=== PATIENT | female | born 2000 | race Hispanic/Latino ===

== ENCOUNTER 2021-05-19 16:07 | Inpatient (IN) | payer OTHER ==
[~2021-05-19 16:07] MED LIST: Bupivacaine 0.25% HCL 30 ML VIAL ONE
[2021-05-19 16:51] VITALS: BMI 29.8
[2021-05-19] MEDS ORDERED: hydrALAZINE 20 MG/ML VIAL SLOW IVP PRN ×2 (17:12→18:05)
[2021-05-19 17:41] LABS: Fetal Membranes Rupture RUPTURE DETECTED (No Rupture)
[2021-05-19] MEDS ORDERED: Ondansetron PF 4 MG/2 ML Vial IVP PRN ×2 (18:05→23:23)
[2021-05-19] MEDS ORDERED: Diphenoxylate HCl/Atropine Tablet PO PRN (18:05)
[2021-05-19] MEDS ORDERED: Promethazine HCl 25 MG/ML VIAL IM PRN ×2 (18:05→23:23)
[2021-05-19] MEDS ORDERED: Ibuprofen 800 MG TAB PO PRN (18:05)
[2021-05-19] MEDS ORDERED: Carboprost 250 MCG/ML AMP IM PRN (18:05)
[2021-05-19] MEDS ORDERED: Lidocaine 1% (PF) 30 ML VIAL SC PRN (18:05)
[2021-05-19] MEDS ORDERED: Misoprostol 200 MCG TAB PR PRN (18:05)
[2021-05-19] MEDS ORDERED: Penicillin G Potassium 5 MILL.UNITS in Sodium Chloride 0.9% 100 ML IVPB SCH (18:15)
[2021-05-19 18:46] LABS: Hemoglobin 10.4 g/dL (12.0-15.5); Mean Corpuscular HGB CONC 30.9 g/dL (32.0-36.0); Mean Corpuscular Hemoglobin 25.4 pg (27.0-33.0); Mean Corpuscular Volume 82.4 fl (81.6-98.3); Mean Platelet Volume 9.9 fl (7.4-10.4); Platelet Count 244 10x3/uL (150-450); RBC Distribution Width 22.2 % (11.5-14.5); Red Blood Cell (RBC) Count 4.09 10x6/uL (3.90-5.03); White Blood Cell (WBC) Count 8.4 10x3/uL (3.5-10.5)
[2021-05-19] MEDS ORDERED: Penicillin G Potassium 5 MILL.UNITS VIAL ONE (19:06)
[2021-05-19 19:13] LABS: Hep B Surf Ag Non-Reactive S/CO (NonReactive); Syphilis Antibody Nonreactive (Nonreactive); Syphilis Antibody Index 0.04 S/CO (<1.00 Non-Reactive)
[2021-05-19] MEDS: Lactated Ringer's 1,000 ML IV SCH (19:16)
[2021-05-19] MEDS ORDERED: Fentanyl 2 mcg/Bup 0.1% Cadd 100 ML ONE (19:58)
[2021-05-19 20:10] LABS: ALT (SGPT) 12 U/L (8-55); AST (SGOT) 16 U/L (5-34); Albumin 3.6 g/dL (3.5-5.0); Alkaline Phosphatase 199 U/L (40-110); Anion Gap 14 mmol/L (10-20); BUN (Urea Nitrogen) 7 mg/dL (7.0-18.7); Bilirubin, Total 0.3 mg/dL (0.2-1.2); Calc. Creatinine Clearance 179 mL/min (70-130); Calcium 8.9 mg/dL (7.8-10.44); Carbon Dioxide 17 mmol/L (22-29); Chloride 111 mmol/L (98-107); Glucose 94 mg/dL (70-105); Protein, Total 6.6 g/dL (6.0-8.3); Sodium 138 mmol/L (136-145)
[2021-05-19 21:32] LABS: Creatinine, Urine 33.35 mg/dL (47-110); Protein, Urine Random Quant Less than 10 mg/dL (1-14)
[2021-05-19] MEDS: Penicillin G 2.5 MILL.units 2.5 MILL.UNITS in Premix Bag 1 BAG IVPB SCH (23:16)
[2021-05-19] MEDS ORDERED: Hydrocerin (Eucerin) Cream 120 gm Jar TOP PRN (23:23)
[2021-05-19] MEDS ORDERED: Lactated Ringer's 500 ML IV PRN (23:23)
[2021-05-19] MEDS ORDERED: Naloxone HCl 0.4 mg/ml Vial IVP PRN ×2 (23:23)
[2021-05-19] MEDS ORDERED: ePHEDrine Sulfate 50 MG/10 ML VIAL SLOW IVP PRN (23:23)
[2021-05-19] MEDS ORDERED: diphenhydrAMINE 50 MG/ML VIAL IVP PRN (23:23)
[2021-05-19] MEDS: NS w/ Oxytocin 30 units 500 ML IV SCH (23:24)
[2021-05-19] MEDS ORDERED: Communication Order-Pharmacy FS SCH (23:30)
[2021-05-19] MEDS ORDERED: Fentanyl 2 mcg/Bupivacaine 0.1% Cassette 100 ML EPIDURAL SCH (23:30)
[2021-05-20 01:03] LABS: SARS-CoV-2 NAA Rapid Test Not Detected (NotDetected)
[2021-05-20] MEDS: Penicillin G 2.5 MILL.units 2.5 MILL.UNITS in Premix Bag 1 BAG IVPB SCH (03:03)
[2021-05-20] MEDS: NS w/ Oxytocin 30 units 500 ML IV SCH (07:50)
[2021-05-20] MEDS ORDERED: Preparation H Ointment 28 GM TUBE PR PRN (08:54)
[2021-05-20] MEDS ORDERED: Ondansetron PF 4 MG/2 ML Vial IVP PRN (08:54)
[2021-05-20] MEDS ORDERED: Bisacodyl 10 MG SUPP PR PRN (08:54)
[2021-05-20] MEDS ORDERED: hydrALAZINE 20 MG/ML VIAL SLOW IVP PRN (08:54)
[2021-05-20] MEDS ORDERED: Benzocaine-Menthol 82.5 ML CAN TOP PRN (08:54)
[2021-05-20] MEDS ORDERED: Acetaminophen 325 MG TAB PO PRN (08:54)
[2021-05-20] MEDS ORDERED: diphenhydrAMINE 25 MG CAP PO PRN (08:54)
[2021-05-20] MEDS ORDERED: Boostrix 0.5 ML (Tdap) VIAL IM ONE (08:54)
[2021-05-20] MEDS ORDERED: Lanolin Ointment 7 GM TUBE TOP PRN (08:54)
[2021-05-20] MEDS ORDERED: Milk Of Magnesia 30 ML UDCUP PO PRN (08:54)
[2021-05-20] MEDS: Prenatal Vitamin 1 TAB PO SCH (10:41)
[2021-05-20] MEDS: Docusate Calcium (SURFAK) 240 MG CAP PO SCH ×2 (10:41→21:51)
[2021-05-20] MEDS: Ibuprofen 800 MG TAB PO SCH ×2 (13:01→21:52)
[2021-05-20] MEDS: Ferrous Sulfate 325 MG TAB PO SCH (15:15)
[2021-05-20] MEDS: Acetaminophen 325 MG TAB PO PRN (22:03)
[2021-05-21] MEDS: Ibuprofen 800 MG TAB PO SCH ×3 (06:46→22:49)
[2021-05-21] MEDS: Ferrous Sulfate 325 MG TAB PO SCH ×2 (07:23→14:45)
[2021-05-21] MEDS: Penicillin G 2.5 MILL.units 2.5 MILL.UNITS in Premix Bag 1 BAG IVPB SCH (07:24)
[2021-05-21] MEDS: Lactated Ringer's 1,000 ML IV SCH (07:24)
[2021-05-21] MEDS: Prenatal Vitamin 1 TAB PO SCH (08:20)
[2021-05-21] MEDS: Acetaminophen 325 MG TAB PO PRN (08:20)
[2021-05-21] MEDS: Docusate Calcium (SURFAK) 240 MG CAP PO SCH ×2 (08:20→22:49)
[2021-05-22] MEDS: Ibuprofen 800 MG TAB PO SCH (05:23)
[2021-05-22 08:01] VITALS: BP 139/82; TEMP 98.5
[2021-05-22] MEDS: Ferrous Sulfate 325 MG TAB PO SCH (08:33)
[2021-05-22] MEDS: Docusate Calcium (SURFAK) 240 MG CAP PO SCH (08:58)
[2021-05-22] MEDS: Prenatal Vitamin 1 TAB PO SCH (08:58)
== END 2021-05-22 12:40 | disposition home or self-care (01) | DRG 805 ==
LOC: CSHLD/OP 16:07 → CSHLD 18:05 → CSHPP 05-20 09:49
PROVIDERS: ADMIT Family Medicine; ATTEND Family Medicine
PROC: 10E0XZZ Delivery of Products of Conception, External Approach (ICD-10-PCS; principal; 2021-05-20)
PROC: 0KQM0ZZ Repair Perineum Muscle, Open Approach (ICD-10-PCS; 2021-05-20)
DX: O10.92 Unspecified pre-existing hypertension complicating childbirth (principal); O60.23X0 Term delivery with preterm labor, third trimester, not applicable or unspecified; Z37.0 Single live birth; O98.82 Other maternal infectious and parasitic diseases complicating childbirth; O70.1 Second degree perineal laceration during delivery; B95.1 Streptococcus, group B, as the cause of diseases classified elsewhere; O99.344 Other mental disorders complicating childbirth; F41.9 Anxiety disorder, unspecified; O99.02 Anemia complicating childbirth; D64.9 Anemia, unspecified; Z3A.37 37 weeks gestation of pregnancy; Z20.822 Contact with and (suspected) exposure to COVID-19
CPT/HCPCS: 80053; 82570; 84112; 84156; 85027; 86780; 86850; 86900; 86901; 87340; J2001; J2540; J2590; J7120; S0020; U0002; U0003; U0005

== ENCOUNTER 2023-02-28 17:36 | Emergency (ER) | payer OTHER ==
[2023-02-28 18:35] LABS: ALT (SGPT) 12 U/L (8-55); AST (SGOT) 16 U/L (5-34); Albumin 4.6 g/dL (3.5-5.0); Alkaline Phosphatase 76 U/L (40-110); Anion Gap 18 mmol/L (10-20); BUN (Urea Nitrogen) 6 mg/dL (7.0-18.7); Bilirubin, Total 0.3 mg/dL (0.2-1.2); Calc. Creatinine Clearance 0 mL/min (70-130); Calcium 9.7 mg/dL (7.8-10.44); Carbon Dioxide 19 mmol/L (22-29); Chloride 102 mmol/L (98-107); Estimated GFR 126; Glucose 99 mg/dL (70-105); Potassium 3.2 mmol/L (3.5-5.1); Protein, Total 8.6 g/dL (6.0-8.3); Sodium 136 mmol/L (136-145)
[2023-02-28 18:45] LABS: #Monocytes 0.6 10x3/uL (0.0-1.1); #Neutrophils 7.4 10x3/uL (1.5-8.4); %Basophils 0.4 % (0.0-2.0); %Eosinophils 0.4 % (0.0-6.0); %Lymphocytes 26.5 % (18.0-47.0); %Monocytes 5.3 % (0.0-10.0); %Neutrophils 67.1 % (40.0-75.0); Hematocrit 37.3 % (34.9-44.5); Hemoglobin 12.2 g/dL (12.0-15.5); Mean Corpuscular HGB CONC 32.7 g/dL (32.0-36.0); Mean Corpuscular Hemoglobin 26.5 pg (27.0-33.0); Mean Corpuscular Volume 80.9 fl (81.6-98.3); Mean Platelet Volume 10.5 fl (7.4-10.4); Platelet Count 303 10x3/uL (150-450); RBC Distribution Width 15.9 % (11.5-14.5); Red Blood Cell (RBC) Count 4.61 10x6/uL (3.90-5.03)
== END 2023-02-28 19:45 | disposition home or self-care (01) ==
LOC: CSHERS 17:36
DX: O20.0 Threatened abortion (principal); Z3A.11 11 weeks gestation of pregnancy
CPT/HCPCS: 76856; 80053; 84702; 85025; 86850; 86900; 86901

== ENCOUNTER 2023-09-10 22:10 | Inpatient (IN) | payer BC, OTHER ==
[2023-09-10 22:22] VITALS: BMI 32.0
[2023-09-10] MEDS ORDERED: hydrALAZINE 20 MG/ML VIAL SLOW IVP PRN (22:37)
[2023-09-10] MEDS ORDERED: Ondansetron PF 4 MG/2 ML Vial IVP PRN (22:37)
[2023-09-10] MEDS ORDERED: Promethazine HCl 25 MG/ML VIAL IM PRN (22:37)
[2023-09-10] MEDS ORDERED: Lidocaine 1% (PF) 30 ML VIAL SC PRN (22:37)
[2023-09-10] MEDS ORDERED: Penicillin G Potassium 5 MILL.UNITS in Sodium Chloride 0.9% 100 ML IVPB SCH (22:45)
[2023-09-10] MEDS: Penicillin G Potassium 5 MILL.UNITS VIAL ONE (23:14)
[2023-09-10 23:17] LABS: Hematocrit 30.6 % (34.9-44.5); Hemoglobin 9.8 g/dL (12.0-15.5); Mean Corpuscular Hemoglobin 23.8 pg (27.0-33.0); Mean Corpuscular Volume 74.5 fl (81.6-98.3); Mean Platelet Volume 10.1 fl (7.4-10.4); Platelet Count 265 10x3/uL (150-450); RBC Distribution Width 16.2 % (11.5-14.5); Red Blood Cell (RBC) Count 4.11 10x6/uL (3.90-5.03); White Blood Cell (WBC) Count 8.1 10x3/uL (3.5-10.5)
[2023-09-10 23:49] LABS: ALT (SGPT) 12 U/L (8-55); AST (SGOT) 20 U/L (5-34); Albumin 3.8 g/dL (3.5-5.0); Alkaline Phosphatase 200 U/L (40-110); Anion Gap 15 mmol/L (10-20); BUN (Urea Nitrogen) 7 mg/dL (7.0-18.7); Bilirubin, Total 0.3 mg/dL (0.2-1.2); Calc. Creatinine Clearance 186 mL/min (70-130); Calcium 8.4 mg/dL (7.8-10.44); Carbon Dioxide 18 mmol/L (22-29); Chloride 109 mmol/L (98-107); Estimated GFR 129; Globulin 2.8 g/dL (2.4-3.5); Glucose 83 mg/dL (70-105); Potassium 3.6 mmol/L (3.5-5.1); Protein, Total 6.6 g/dL (6.0-8.3); Sodium 138 mmol/L (136-145)
[2023-09-11 00:01] LABS: Syphilis Antibody Nonreactive (Nonreactive); Syphilis Antibody Index 0.06 S/CO (<1.00 Non-Reactive)
[2023-09-11 00:02] LABS: HBSAg Index 0.19 S/CO (0-0.99); Hep B Surf Ag - L&D Non-Reactive S/CO (NonReactive)
[2023-09-11 01:00] LABS: Creatinine, Urine 36.54 mg/dL (47-110); Protein, Urine Random Quant Less than 10 mg/dL (1-14)
[2023-09-11] MEDS: fentaNYL/Ropivacaine Epidural 100 ML ONE (01:05)
[2023-09-11] MEDS ORDERED: Moisturizing Cream (Eucerin) 113 GM JAR TOP PRN (01:16)
[2023-09-11] MEDS ORDERED: Naloxone HCl 0.4 mg/ml Vial IVP PRN ×2 (01:16)
[2023-09-11] MEDS ORDERED: Ondansetron PF 4 MG/2 ML Vial IVP PRN (01:16)
[2023-09-11] MEDS ORDERED: Promethazine HCl 25 MG/ML VIAL IM PRN (01:16)
[2023-09-11] MEDS ORDERED: Lactated Ringer's 500 ML IV PRN (01:16)
[2023-09-11] MEDS ORDERED: ePHEDrine Sulfate 50 MG/10 ML VIAL SLOW IVP PRN (01:16)
[2023-09-11] MEDS ORDERED: diphenhydrAMINE 50 MG/ML VIAL IVP PRN (01:16)
[2023-09-11] MEDS ORDERED: fentaNYL 2 mcg/Ropivacaine 0.2% Epidural 100 ML CADD EPIDURAL SCH (01:30)
[2023-09-11] MEDS ORDERED: Communication Order-Pharmacy FS SCH (01:30)
[2023-09-11] MEDS: Penicillin G 2.5 MILL.units 2.5 MILL.UNITS in Premix 1 BAG IVPB SCH (03:19)
[2023-09-11] MEDS: Lactated Ringer's 1,000 ML IV SCH (07:09)
[2023-09-11] MEDS: Misoprostol 200 MCG TAB PR PRN (08:20)
[2023-09-11 08:34] LABS: Analyzer IN Cardio CS NICU; RapidComm Collect By OR NURSE; pH (Cord, venous) 7.361 (7.250-7.350)
[2023-09-11 08:36] LABS: Analyzer IN Cardio CS NICU; RapidComm Collect By OR NURSE
[2023-09-11] MEDS ORDERED: Milk Of Magnesia 30 ML UDCUP PO PRN (08:42)
[2023-09-11] MEDS ORDERED: Bisacodyl 10 MG SUPP PR PRN (08:42)
[2023-09-11] MEDS ORDERED: Misoprostol 200 MCG TAB VAG PRN (08:42)
[2023-09-11] MEDS ORDERED: hydrALAZINE 20 MG/ML VIAL SLOW IVP PRN (08:42)
[2023-09-11] MEDS ORDERED: Boostrix 0.5 ML (Tdap) VIAL (>/=7 yrs of age) IM ONE (08:42)
[2023-09-11] MEDS ORDERED: Benzocaine-Menthol 82.5 ML CAN TOP PRN (08:42)
[2023-09-11] MEDS ORDERED: Docusate 100 MG CAP PO SCH (09:00)
[2023-09-11] MEDS: Oxytocin 30 units/NS 500 ML 500 ML IV SCH (09:49)
[2023-09-11] MEDS: Carboprost 250 MCG/ML AMP ONE (09:50)
[2023-09-11] MEDS: Misoprostol 200 MCG TAB ONE (09:50)
[2023-09-11] MEDS: Ibuprofen 800 MG TAB PO SCH (12:23)
[2023-09-11] MEDS ORDERED: Bupivacaine 0.25% HCL 30 ML VIAL ONE (12:29)
[2023-09-11 13:48] LABS: Hep C IgG Ab Non-Reactive S/CO (NonReactive); Hep C Index 0.11 S/CO (0-0.79)
[2023-09-11] MEDS ORDERED: Ibuprofen 800 MG TAB PO SCH (14:00)
[2023-09-11] MEDS ORDERED: Ferrous Sulfate 325 MG TAB PO SCH (17:00)
[2023-09-11] MEDS: Acetaminophen 325 MG TAB PO PRN (18:41)
[2023-09-12 04:57] LABS: #Eosinphils 0.1 10x3/uL (0.0-0.5); #Monocytes 0.6 10x3/uL (0.0-1.1); #Neutrophils 3.9 10x3/uL (1.5-8.4); %Basophils 0.1 % (0.0-2.0); %Eosinophils 1.5 % (0.0-6.0); %Lymphocytes 36.6 % (18.0-47.0); %Monocytes 7.8 % (0.0-10.0); %Neutrophils 53.7 % (40.0-75.0); Hematocrit 25.2 % (34.9-44.5); Hemoglobin 8.2 g/dL (12.0-15.5); Mean Corpuscular HGB CONC 32.5 g/dL (32.0-36.0); Mean Corpuscular Hemoglobin 24.6 pg (27.0-33.0); Mean Corpuscular Volume 75.7 fl (81.6-98.3); Mean Platelet Volume 9.9 fl (7.4-10.4); Platelet Count 210 10x3/uL (150-450); RBC Distribution Width 16.6 % (11.5-14.5); Red Blood Cell (RBC) Count 3.33 10x6/uL (3.90-5.03); White Blood Cell (WBC) Count 7.3 10x3/uL (3.5-10.5)
[2023-09-12] MEDS: Prenatal Vitamin 1 TAB PO SCH (09:33)
[2023-09-12] MEDS: Docusate 100 MG CAP PO PRN (09:33)
[2023-09-12] MEDS ORDERED: hydrALAZINE 20 MG/ML VIAL SLOW IVP PRN (19:36)
[2023-09-12] MEDS ORDERED: Lanolin Ointment 7 GM TUBE TOP PRN (19:36)
[2023-09-12] MEDS ORDERED: Milk Of Magnesia 30 ML UDCUP PO PRN (19:36)
[2023-09-12] MEDS ORDERED: Bisacodyl 10 MG SUPP PR PRN (19:36)
[2023-09-12] MEDS ORDERED: Benzocaine-Menthol 82.5 ML CAN TOP PRN (19:36)
[2023-09-12] MEDS ORDERED: Methylergonovine 0.2 MG/ML VIAL IM PRN (19:36)
[2023-09-12] MEDS ORDERED: diphenhydrAMINE 25 MG CAP PO PRN (19:36)
[2023-09-12] MEDS ORDERED: Preparation H Ointment 28 GM TUBE PR PRN (19:36)
[2023-09-13] MEDS: Boostrix 0.5 ML (Tdap) VIAL (>/=7 yrs of age) IM ONE (08:03)
[2023-09-13] MEDS: Ferrous Sulfate 325 MG TAB PO SCH (08:55)
[2023-09-13 09:31] VITALS: BP 127/64; TEMP 98.5
== END 2023-09-13 12:20 | disposition home or self-care (01) | DRG 806 ==
LOC: CSHLD/OP 22:10 → CSHLD 22:43 → CSHPP 09-11 11:00
PROVIDERS: ADMIT Student in an Organized Health Care Education/Training Program; ATTEND Student in an Organized Health Care Education/Training Program
PROC: 10D07Z8 Extraction of Products of Conception, Other, Via Natural or Artificial Opening (ICD-10-PCS; principal; 2023-09-11)
PROC: 10H07YZ Insertion of Other Device into Products of Conception, Via Natural or Artificial Opening (ICD-10-PCS; 2023-09-11)
PROC: 10907ZC Drainage of Amniotic Fluid, Therapeutic from Products of Conception, Via Natural or Artificial Opening (ICD-10-PCS; 2023-09-11)
PROC: 4A0HXCZ Measurement of Products of Conception, Cardiac Rate, External Approach (ICD-10-PCS; 2023-09-11)
PROC: 0UQMXZZ Repair Vulva, External Approach (ICD-10-PCS; 2023-09-11)
DX: O99.824 Streptococcus B carrier state complicating childbirth (principal); O98.82 Other maternal infectious and parasitic diseases complicating childbirth; Z37.0 Single live birth; Z3A.39 39 weeks gestation of pregnancy; O43.113 Circumvallate placenta, third trimester; R03.0 Elevated blood-pressure reading, without diagnosis of hypertension; O76 Abnormality in fetal heart rate and rhythm complicating labor and delivery; O99.02 Anemia complicating childbirth; B37.9 Candidiasis, unspecified; O75.89 Other specified complications of labor and delivery; O75.3 Other infection during labor; O70.0 First degree perineal laceration during delivery
CPT/HCPCS: 51702; 80053; 82570; 82805; 84156; 85025; 85027; 86780; 86803; 86850; 86900; 86901; 87340; J0665; J2540; J2590; J7120

== ENCOUNTER 2024-01-21 20:40 | Inpatient (IN) | payer BC ==
[~2024-01-21 20:40] MED LIST changes: -Bupivacaine 0.25% HCL 30 ML VIAL ONE; +Iopamidol 300 61% 100 ML VIAL FS ONE
[2024-01-21 21:01] LABS: Bilirubin Neg (Negative); Blood, Urine 250 (Negative); Clarity Slightly Cloudy (Clear); Glucose, Urine (Dipstick) Normal (Negative); Ketone, Urine Negative (Negative); Leukocyte 500 (Negative); Nitrite Negative (Negative); Protein, Urine (Dipstick) 100 mg/dl (Neg-Trace); Specific Gravity, Urine 1.015 (1.005-1.030); Urobilinogen Normal mg/dL (Less than 2)
[2024-01-21] MEDS ORDERED: Acetaminophen 500 MG TAB ONE (21:17)
[2024-01-21 21:27] LABS: Bacteria/HPF 3+ HPF (None Seen); CAUTI Indications for Culture Pelvic or flank pain; Squamous Epithelial 0-3 HPF (0-3); WBC/HPF Greater than 50 HPF (0-3)
[2024-01-21 21:28] LABS: Urine Culture Reflex Yes Yes
[2024-01-21 21:42] LABS: #Basophils 0.04 10x3/uL (0.0-0.2); #Eosinphils 0.01 10x3/uL (0.0-0.5); #Monocytes 0.83 10x3/uL (0.0-1.1); #Neutrophils 14.32 10x3/uL (1.5-8.4); %Basophils 0.2 % (0.0-2.0); %Eosinophils 0.1 % (0.0-6.0); %Lymphocytes 8.8 % (18.0-47.0); %Neutrophils 85.5 % (40.0-75.0); Hematocrit 35.5 % (34.9-44.5); Hemoglobin 11.8 g/dL (12.0-15.5); Mean Corpuscular HGB CONC 33.2 g/dL (32.0-36.0); Mean Corpuscular Hemoglobin 25.4 pg (27.0-33.0); Mean Corpuscular Volume 76.3 fL (81.6-98.3); Mean Platelet Volume 9.9 fL (7.4-10.4); Platelet Count 340 10x3/uL (150-450); RBC Distribution Width 15.7 % (11.5-14.5); Red Blood Cell (RBC) Count 4.65 10x6/uL (3.90-5.03); White Blood Cell (WBC) Count 16.7 10x3/uL (3.5-10.5)
[2024-01-21] MEDS ORDERED: cefTRIAXone (ROCEPHIN) 2 GM VIAL ONE (21:45)
[2024-01-21 21:57] LABS: ALT (SGPT) 12 U/L (8-55); AST (SGOT) 15 U/L (5-34); Albumin 4.5 g/dL (3.5-5.0); Alkaline Phosphatase 101 U/L (40-110); Anion Gap 17 mmol/L (10-20); BUN (Urea Nitrogen) 9 mg/dL (7.0-18.7); Bilirubin, Total 0.3 mg/dL (0.2-1.2); Calc. Creatinine Clearance 0 mL/min (70-130); Calcium 9.4 mg/dL (7.8-10.44); Carbon Dioxide 19 mmol/L (22-29); Chloride 105 mmol/L (98-107); Estimated GFR 113; Globulin 4.5 g/dL (2.4-3.5); Glucose 104 mg/dL (70-105); Lipase 11 U/L (8-78); Potassium 3.5 mmol/L (3.5-5.1); Sodium 137 mmol/L (136-145)
[2024-01-21 22:03] LABS: Troponin I Less than 0.010 ng/mL (< 0.028)
[2024-01-21 22:07] LABS: Pregnancy Test - Urine (BHCG) Negative (Negative); Pregu Control Background? CLEAR/WHITE (CLR/WHITE); Pregu Control Bar Appear? YES (CONTROL BAR); Specific Gravity 1.015 (1.002-1.036)
[2024-01-22 01:53] VITALS: BMI 29.6
[2024-01-22] MEDS: Sodium Chloride 0.9% 1,000 ML IV SCH (02:30)
[2024-01-22] MEDS: Ondansetron PF 4 MG/2 ML Vial IVP PRN (02:55)
[2024-01-22 02:58] LABS: #Basophils 0.03 10x3/uL (0.0-0.2); #Eosinphils 0.01 10x3/uL (0.0-0.5); #Monocytes 1.29 10x3/uL (0.0-1.1); #Neutrophils 12.22 10x3/uL (1.5-8.4); %Basophils 0.2 % (0.0-2.0); %Eosinophils 0.1 % (0.0-6.0); %Monocytes 8.6 % (0.0-10.0); %Neutrophils 81.7 % (40.0-75.0); Hematocrit 31.2 % (34.9-44.5); Hemoglobin 9.9 g/dL (12.0-15.5); Mean Corpuscular HGB CONC 31.7 g/dL (32.0-36.0); Mean Corpuscular Hemoglobin 24.4 pg (27.0-33.0); Mean Corpuscular Volume 76.8 fL (81.6-98.3); Mean Platelet Volume 9.8 fL (7.4-10.4); Platelet Count 287 10x3/uL (150-450); RBC Distribution Width 15.8 % (11.5-14.5); Red Blood Cell (RBC) Count 4.06 10x6/uL (3.90-5.03)
[2024-01-22 03:13] LABS: ALT (SGPT) 10 U/L (8-55); AST (SGOT) 13 U/L (5-34); Albumin 3.8 g/dL (3.5-5.0); Alkaline Phosphatase 86 U/L (40-110); Anion Gap 15 mmol/L (10-20); BUN (Urea Nitrogen) 6 mg/dL (7.0-18.7); Bilirubin, Total 0.4 mg/dL (0.2-1.2); Calc. Creatinine Clearance 149 mL/min (70-130); Calcium 8.3 mg/dL (7.8-10.44); Carbon Dioxide 19 mmol/L (22-29); Chloride 110 mmol/L (98-107); Estimated GFR 124; Globulin 3.5 g/dL (2.4-3.5); Glucose 104 mg/dL (70-105); Potassium 3.5 mmol/L (3.5-5.1); Protein, Total 7.3 g/dL (6.0-8.3); Sodium 140 mmol/L (136-145)
[2024-01-22 04:03] LABS: SARS-CoV-2 E Target Negative; SARS-CoV-2 N2 Target Negative; SARS-CoV-2 NAA Rapid Test Not Detected (NotDetected); SARS-CoV-2 RdRP gene Negative
[2024-01-22] MEDS: Acetaminophen 325 MG TAB PO SCH (06:40)
[2024-01-22] MEDS: Pantoprazole 40 MG VIAL IVP SCH (08:10)
[2024-01-22] MEDS: Enoxaparin 40 MG (0.4 mL) SYRINGE SC SCH (08:10)
[2024-01-22] MEDS: traMADol HCl 50 MG TAB PO PRN (21:44)
[2024-01-22] MEDS: cefTRIAXone\\ROCEPHIN 1 GM in Sodium Chloride 0.9% 100 ML IVPB SCH (21:46)
[2024-01-23] MEDS: Dexmedetomidine 200 MCG/2 ML VIAL ONE (02:04)
[2024-01-23] MEDS: Ketorolac Tromethamine 30 MG (1 mL) VIAL IVP PRN (02:29)
[2024-01-23] MEDS: LevoFLOXacin 750 MG TAB PO SCH (10:49)
[2024-01-23 11:01] VITALS: BP 126/80; TEMP 97.4
== END 2024-01-23 13:02 | disposition home or self-care (01) | DRG 872 ==
LOC: CSHERS 20:40 → CSHTELE 01-22 00:25
PROVIDERS: ADMIT Internal Medicine; ATTEND Internal Medicine
DX: A41.51 Sepsis due to Escherichia coli [E. coli] (principal); N12 Tubulo-interstitial nephritis, not specified as acute or chronic; R30.0 Dysuria; I10 Essential (primary) hypertension; Z79.899 Other long term (current) drug therapy
CPT/HCPCS: 36415; 74177; 80053; 81001; 81025; 83605; 83690; 84484; 85025; 87040; 87077; 87086; 87186; 93005; 96365; C9113; J0696; J1650; J1885; J2405; J3490; J7050; Q9967; U0002